=== PATIENT | female | born 2005 | race African-American/Black ===

== ENCOUNTER 2024-09-02 23:36 | Emergency (ER) | payer BC, SELFPAY ==
--- NOTE | ~2024-09-02 | CT_ITS ---
Clinical Indication: Chest pain, shortness of breath CT Scan of the Chest with Contrast: Technique: Contiguous sections were acquired throughout the chest after intravenous administration of 100 cc of Omnipaque 350. Dose reduction technique was used on this scan by utilizing automated expos ure control and iterative reconstruction technique. The dose-length product (DLP) was 163.52 mGy-cm. Findings: There is no evidence of any significant mediastinal, hilar or axillary lymphadenopathy. There is no f illing defect in the pulmonary arterial tree to suggest pulmonary embolus. There is no evidence of ao rtic dissection or aneurysm. There is no evidence of pleural or pericardial effusion. The lungs are clear. No pulmonary nodules or infiltrates are noted. Images through the upper abdomen reveal no abnormalities. Impression: No evidence of pulmonary embolus, aortic dissection, or aortic aneurysm. Clear lungs. Reviewed, dictated and finalized at [facility]. VISION ANTENNA INSTALLER Impression: No evidence of pulmonary embolus, aortic dissection, or aortic aneurysm. Clear lungs.
--- NOTE | ~2024-09-02 | XR_ITS ---
Clinical Indication: Shortness of breath PA and lateral views of the chest: Comparison: None Findings: The lungs are clear, without evidence of focal consolidation or pleural effusion. Cardiome diastinal silhouette is within normal limits. Bones and soft tissues are unremarkable. Impression: Normal chest. Reviewed, dictated and finalized at [facility]. SUPERVISOR Impression: Normal chest.
--- OUTSIDE RECORDS SUMMARY | 2024-09-02 23:38 | XMS_ITS | CONTINUITY OF CARE DOCUMENT ---
Author Name william thomas Address Unknown Organization [facility] Address [address] [place] [address] [address] [place] [address] Phone [phone] Care Team Providers Care Camp Manager Name Role Phone Sudhir Carver MD Unavailable Sudhir Carver MD Unavailable INSURANCE PROVIDERS Payer name Policy type / Coverage type [place] red green party ID BLUE SHIELD OF [place] Blue Shield [place] Blue Shield [facility] Blue Shield [id number]
[2024-09-03] VITALS (10 sets, daily range): BP systolic 104–121; BP diastolic 66–83; PULSE 64–81; RESP 12–21; TEMP 36.5; O2SAT 93–100
--- NOTE | 2024-09-03 | ECG_ITS ---
Test Date: 2024-09-03 00:00:54 Measurements Intervals [place] Rate: 71 P: 61 [place]: 176 QRS: 81 QRSD: 88 T: 76 QT: 457 QTc: 498 Interpretive Statements SINUS RHYTHM INCOMPLETE RIGHT BUNDLE BRANCH BLOCK MINIMAL Q WAVES- INFERIOR LEADS PROLONGED QT INTERVAL BASELINE ARTIFACT- I, II, AVR, AVL, AVF, V1-V6 ABNORMAL ECG No previous ECG available for comparison Electronically Signed On 09-03-2024 07:51:49 FINAL COAT SPRAYER by Rickey Lanier D.O.
[2024-09-03 00:50] LABS: Alanine Aminotransferase 22 U/L (6-35); Albumin Level 4.3 g/dL (3.5-5.1); Alkaline Phosphatase 69 U/L (38-126); Anion Gap 10 mmol/L (4-12); Aspartate Amino Transferase 31 U/L (14-36); Blood Urea Nitrogen 17 mg/dL (7-17); Calcium 9.3 mg/dL (8.4-10.2); Carbon Dioxide 26 mmol/L (22-30); Chloride 101 mmol/L (98-107); Estimated CRCL calculation 116 ml/min; Estimated Glomerular Filt Rate > 60; Glucose 130 mg/dL (65-110); Lipase 68 U/L (23-300); Potassium 3.4 mmol/L (3.4-5.0); Sodium 137 mmol/L (137-145)
[2024-09-03 00:57] LABS: Prothrombin Time 13.8 Seconds (11.1-14.7)
[2024-09-03 01:01] LABS: Troponin I < 0.012 ng/mL (0.000-0.034)
[2024-09-03 01:07] LABS: Basophils Percent Auto 0.4 % (0.2-1.2); Eosinophils Absolute Auto 0.1 K/mm3 (0-0.3); Eosinophils Percent Auto 1.1 % (0-4.4); Hematocrit 37.7 % (37.0-47.0); Immature Granulocyte Absolute 0.02 K/mm3 (0.00-0.031); Immature Granulocyte Percent A 0.2 % (0-0.5); Lymphocytes Percent Auto 39.8 % (18.3-44.2); Mean Corpuscular HGB Conc 34.5 g/dl (32-36); Mean Corpuscular Hemoglobin 30.4 pg (26-34); Mean Corpuscular Volume 88.3 fl (80-100); Mean Platelet Volume 10.4 fl (7.4-10.4); Monocytes Absolute Auto 0.5 K/mm3 (0.1-0.6); Monocytes Percent Auto 5.6 % (2.6-8.5); Neutrophils Absolute Auto 4.3 K/mm3 (1.3-6.7); Neutrophils Percent Auto 52.9 % (45.5-73.1); Platelet Count Result 219 k/mm3 (150-375); Red Blood Count 4.27 M/mm3 (4.2-5.4); White Blood Count 8.1 K/mm3 (4.5-10.0)
--- NOTE | 2024-09-03 05:19 | ED.GENADULT ---
HPI - General Adult General Chief complaint: Chest Pain Stated complaint: chest pain Time Seen by Provider: 09/03/24 04:57 History of Present Illness HPI narrative: Patient is a 19-year-old female who presents emergency department with chief complaint of chest pain. The patient reports that she has been having palpitations throughout the day and has had pressure and tightness in her chest. The patient states that she is on Vyvanse and also on propanolol the patient reports she has had a outpatient evaluation by both cardiology and reports that she has a family history from our fans the patient reports that her father does not have history but her grandfather did have a history of Marfan's Review of Systems Review of Systems: A 10 system review of systems was completed on the patient and is negative except for what is stated in the HPI. Nursing and ancillary documentation was reviewed. Exam Narrative: GENERAL: Well-appearing, well-nourished, and in no acute distress. HEAD: Normocephalic, atraumatic. EYES: PERRLA and EOMI. ENT: Nares clear, no rhinorrhea or epistaxis. Mucous membranes moist. NECK: Supple. CHEST: Clear to auscultation. No respiratory distress. HEART: Regular rate and rhythm. No murmur heard. Normal peripheral pulses. ABDOMEN: Soft, nontender, nondistended, normal active bowel sounds. EXTREMITIES: Normal range of motion. No edema. SKIN: Warm, dry, no rash. NEURO: No focal deficits. Alert and oriented x3. PSYCH: Normal mood and affect. Course Vital Signs Vital signs: Vital Signs Temperature 36.5 C 09/03/24 00:06 Pulse Rate 66 09/03/24 00:06 Respiratory Rate 16 09/03/24 00:06 Blood Pressure 117/72 09/03/24 00:06 Pulse Oximetry 100 09/03/24 00:06 Oxygen Delivery Room Air 09/03/24 00:06 Temperature 36.5 C 09/03/24 00:06 Pulse Rate 81 09/03/24 06:31 Respiratory Rate 14 09/03/24 06:31 Blood Pressure 121/75 09/03/24 06:31 Pulse Oximetry 100 09/03/24 05:48 Oxygen Delivery Room Air 09/03/24 04:[address] [facility] Narrative Medical decision making narrative: Differential diagnosis includes ACS, pulmonary embolism, dissection, aneurysm EKG showed no acute ischemic changes electrolytes are within normal limits troponin was negative CTA chest showed no evidence of PE dissection or aneurysm Vital Signs Vital Signs: Vital Signs Temperature 36.5 C 09/03/24 00:06 Pulse Rate 66 09/03/24 00:06 Respiratory Rate 16 09/03/24 00:06 Blood Pressure 117/72 09/03/24 00:06 Pulse Oximetry 100 09/03/24 00:06 Oxygen Delivery Room Air 09/03/24 00:06 Temperature 36.5 C 09/03/24 00:06 Pulse Rate 81 09/03/24 06:31 Respiratory Rate 14 09/03/24 06:31 Blood Pressure 121/75 09/03/24 06:31 Pulse Oximetry 100 09/03/24 05:48 Oxygen Delivery Room Air 09/03/24 04:29 Lab Data 09/03/24 00:10 09/03/24 00:10 Labs: Lab Results 09/03/24 09/03/24 Range/Units 00:10 05:40 WBC 8.1 (4.5-10.0) K/mm3 RBC 4.27 (4.2-5.4) M/mm3 Hgb 13.0 (12.0-15.0) g/dL Hct 37.7 (37.0-47.0) % MCV 88.3 (80-100) fl MCH 30.4 (26-34) pg MCHC 34.5 (32-36) g/dl RDW 13.0 (11.5-14.5) % Plt Count 219 (150-375) k/mm3 MPV 10.4 (7.4-10.4) fl Immature Gran % (Auto) 0.2 (0-0.5) % Neut % (Auto) 52.9 (45.5-73.1) % Lymph % (Auto) 39.8 (18.3-44.2) % [place] % (Auto) 5.6 (2.6-8.5) % Eos % (Auto) 1.1 (0-4.4) % Baso % (Auto) 0.4 (0.2-1.2) % Lymph # (Auto) 3.20 (0.9-3.2) K/mm3 [place] # (Auto) 0.5 (0.1-0.6) K/mm3 Eos # (Auto) 0.1 (0-0.3) K/mm3 Baso # (Auto) 0.0 (0.0-0.1) K/mm3 Abs Immat Gran (auto) 0.02 (0.00-0.031) K/mm3 Absolute Neuts (auto) 4.3 (1.3-6.7) K/mm3 Absolute Nucleated RBC 0.000 (0.0-0.012) K/mm3 Nucleated RBC % 0.0 (0.0-0.2) % PT 13.8 (11.1-14.7) Seconds INR 1.0 APTT 26.0 (22.3-36.8) Seconds Sodium 137 (137-145) mmol/L Potassium 3.4 (3.4-5.0) mmol/L Chloride 101 (98-107) mmol/L Carbon Dioxide 26 (22-30) mmol/L Anion Gap 10 (4-12) mmol/L BUN 17 (7-17) mg/dL Creatinine 0.56 L (0.7-1.0) mg/dL Estim Creat Clear Calc 116 ml/min Estimated GFR > 60 (59 - ) Glucose 130 H (65-110) mg/dL Calcium 9.3 (8.4-10.2) mg/dL Total Bilirubin 1.0 (0.2-1.3) mg/dL AST 31 (14-36) U/L ALT 22 (6-35) U/L Alkaline Phosphatase 69 (38-126) U/L Troponin I < 0.012 < 0.012 (0.000-0.034) ng/mL Total Protein 8.0 (6.3-8.2) g/dL Albumin 4.3 (3.5-5.1) g/dL Lipase 68 (23-300) U/L Discharge Plan Discharge Clinical Impression: Atypical chest pain Patient Disposition: Home, Self-Care Condition: Stable Instructions: Antibiotic Form, Chest Pain (ED) Patient Language: Citizen Of [place] Follow-up/Referrals: Christiano,JACQUES Marroquin [Primary Care Provider] - Time of Disposition: 06:59
--- OUTSIDE RECORDS SUMMARY | 2024-09-03 05:24 | XMS_ITS | Clinical Summary ---
Author Organization [facility] Address [address] [place] [address] Care Team Providers Care Mover Helper Name Role Phone Unavailable Primary Care Provider Unavailabl e Social History Tobacco Use Types Packs/Day Years Used Date Smoking Tobacco: Never Assessed Comments Unknown Sex and Gender Information Value Date Recorded Sex Assigned at Not on file Legal Sex Female 12:56 PM PAPER PRODUCTION ENGINEER Gender Identity Not on file Sexual Orientation Not on file Plan of Treatment Health Maintenance Due Date Last Done Comments Hepatitis C Virus (HCV) Screening 2003 Meningococcal B Immunization (1 of 2 - Standard) 2019 Influenza Immunization (#1) 2024 07/07/2012, 1 09/12/2005 SARS-COV-2 Immunization ( season) 2024 Respiratory Syncytial Virus (RSV) Immunization (Adult) (1 - 1-dose 75+ series) 2078 Pneumococcal Immunization Combined Aged Out 01/13/2004, 2003, 2003 No longer eligible based on patient's age to complete this topic Hepatitis B Immunization Completed 004, 2003, 2003 Hepatitis A Immunization Discontinued 03/14/2008, 07/31 Measles Mumps Rubella (MMR) Immunization Discontinued 05/16/2011, 11/24/2004 Varicella Immunization Discontinued 05/16/2011, 2004 DTaP/Tdap/Td Immunization Discontinued 2014, 05/16/2011, 02/18/2005, Additional history exists TdaP Immunization Completed 03/03/2015 Human Papillomavirus (HPV) Immunization Completed 04/11/2018, 03/03/2015 Meningococcal Immunization (ACWY) Aged Out 04/11/2018 No longer eligible based on patient's age to complete this topic Rotavirus Immunization Aged Out No lo nger eligible based on patient's age to complete this topic
--- OUTSIDE RECORDS SUMMARY | 2024-09-03 05:24 | XMS_ITS | Patient Health Summary ---
Author Organization [facility] Address [address] [place] [address] Care Team Providers Care Baker Chef Name Role Phone Nguyễn Lopez MD Primary Care Provider Note from [facility],non-owned Affiliates and Associated Physician Practices is amultiple site organization consisting of ambulatory clinics and hospital sitesin [place], [place], [place] and [place]. This disclosure is being madepursuant to the Care Everywhere program and may not contain all information available regarding this patient. Last updated 18.[facility] Allergies No known active allergies Medications * Be aware that medications may not be up to date on this document. Alwaysverify current medications with the patient. * acetaminophen (TYLENOL) 325 MG tablet Take 325 mg by mouth every 4 hours as needed for Fever or Pain Maximum allowable Acetaminophen amount = 4 Grams (4000 mg) / 24 hours. Active Problems Problem Noted Date Diagnosed Date Premature pubarche 10/28/2011 Tall stature 10/28/2011 Social History Tobacco Use Types Packs/Day Years Used Date Smoking Tobacco: Never Smokeless Tobacco: Never Alcohol Use Standard Drinks/Week Comments Never 0 (1 standard drink = 0.6 oz pur e alcohol) AUDIT-C Answer Date Recorded Frequency of Alcohol Consumption Never 07/05/2019 Average Number of Drinks Not on file 019 Frequency of Binge Drinking Not on file 12/2018 Sex and Gender Information Value Date Recorded Sex Assigned at Not on file Gender Identity Not on file Sexual Orientation Not on file Last Filed Vital Signs Vital Sign Reading Time Taken Comments Blood Pressure 102/60 07/05/2019 1:05 PM PHOTOGRAPHY TEACHER Pulse 84 07/05/2019 1:05 PM PHOTOGRAPHY TEACHER Temperature 36.7 ??C (98 ??F) 07/05/2019 1:05 PM PHOTOGRAPHY TEACHER Respiratory Rate 16 07/05/2019 1:05 PM PHOTOGRAPHY TEACHER Oxygen Saturation 100% 07/05/2019 1:05 PM PHOTOGRAPHY TEACHER Inhaled Oxygen Concentration - - Weight 46.7 kg (102 lb 15.3 oz) 02/24/2021 1:00 PM CDT Height 177.8 cm (5' 10 ) 02/24/2021 1:00 PM CDT Body Mass Index 14.77 02/24/2021 1:00 PM CDT Procedures * IMAGING/RADIOLOGY/XRAY RESULTS ORDER(Performed 11/04/2011) Results * IMAGING/RADIOLOGY/XRAY RESULTS ORDER (11/04/2011 8:20 AM CDT) Anatomical Region Laterality Modality Other Narrative Transcriptions Document, Scanned - 11/04/2011 8:20 AM CDT Scanned Document IMAGING Care Teams Baker Chef Relationship Specialty Start Date End Date Nguyễn Lopez MD [address] [place] [address] PCP - General 11/29/21
--- OUTSIDE RECORDS SUMMARY | 2024-09-03 05:24 | XMS_ITS | Clinical Summary ---
Author Organization [facility] Address [address] [place] [address]. [place] [address] [place] [address] Care Team Providers Care Diesel Service Journeyman Name Role Phone Angel Luis Hernandez Primary Care Provider Unavail able Medications SLYND 4 MG Tab Take 4 mg by mouth daily. 09/19/2023 Active lisdexamfetamin e (VYVANSE) 30 MG capsule Take 1 capsule (30 mg total) by mouth daily. 11/15/2023 Active propranolol LA (INDERAL LA) 60 MG 24 hr capsule Take 1 capsule (60 mg total) by mouth daily. Active Active Problems Problem Noted Date Diagnosed Date Precordial pain 04/10/2024 Palpitation 04/10/2024 Incomplete right bundle branch block 08/26/2022 Gastro-esophageal reflux disease with esophagiti s 09/10/2018 Family History Medical History Relation Comments Pacemaker Maternal Grandfather Diabetes Maternal Grandmother Hypertension Maternal Grandmother Hypertension Mother Marfan syndrome Other Relation Status Comments Father Alive Half-brother Alive Half-sister Alive Maternal Grandfather Alive Maternal Grandmother Alive Mother Alive Other Paternal Grandfather Alive Paternal Grandmother Alive Sister Alive Social History Tobacco Use Types Packs/Day Years Used Date Smoking Tobacco: Never Smokeless Tobacco: Never Tobacco Cessation:Counseling Given: Not Answered Alcohol Use Standard Drinks/Week Comments Yes 0 (1 standard drink = 0.6 oz pur e alcohol) Comments Unknown Sex and Gender Information Value Date Recorded Sex Assigned at Not on file Legal Sex Female 9:55 AM CDT Gender Identity Not on file Sexual Orientation Not on file Occupation Industry Job Start Date Job End Date Student Not on file Not on file Not on file Last Filed Vital Signs Vital Sign Reading Time Taken Comments Blood Pressure 98/70 04/10/2024 3:04 PM CDT Pulse 73 04/10/2024 2:32 PM CDT Temperature - - Respiratory Rate - - Oxygen Saturation 98% 04/10/2024 2:32 PM CDT Inhaled Oxygen Concentration - - Weight 53.1 kg (117 lb) 04/10/2024 2:32 PM CDT Height 180.3 cm (5' 11 ) 04/10/2024 2:32 PM CDT Body Mass Index 16.32 04/10/2024 2:32 PM CDT Plan of Treatment Upcoming Encounters Date Type Department Care Team (Late st Contact Info) Description 04/16/2025 3:00 PM CDT Office Visit [facility] [facility] [address] [place], [place] [id number] Kristine Davila MD [facility]. [address] [place], [place] [id number] Health Maintenance Due Date Last Done Comments Annual Physical 2006 Hepatitis C 2021 COVID-19 Vaccine ( season) 2024 03/17/2021, 02/24/2021 Influenza Adult (#1) 2024 07/07/2012, 08/11/2009, 07/06/2009, Additional history exists DTaP, Tdap and Td Vaccines (7 - Td or Tdap) 03/03/2025 03/03/2015, 05/16/2011, 02/18/2005, Additional history exists Cervical Cancer Screening Pap Smear (Age 21 to 29) Every 3 Years 06/07/2025 06/07/2022, 06/07/2022 Cervical Cancer Screening 06/07/2025 Pneumococcal Vaccine: Pediatrics (0 to 5 Years) and At-Risk Patients (6 to 64 Years) Aged Out 01/13/2004, 2003, 2003 No longer eligible based on patient's age to complete this topic Hepatitis B Vaccines Completed 04/08/2004, 2003, 2003 HPV Vaccines Completed 04/11/2018, 03/03/2015 Meningococcal Vaccine Completed 08/28/2020, 018 Meningococcal B Vaccine Completed 08/30/2021, 08/28 RSV Immunizations Under 20 Months Aged Out No longer eligible based on patient's age to complete this topic Insurance [facility] Care Teams Diesel Service Journeyman Relationship Specialty Start Date End Date Angel Luis Hernandez PA PCP - General PHYSICIAN QUALITY INSPECTOR 10/09/23
--- OUTSIDE RECORDS SUMMARY | 2024-09-03 05:24 | XMS_ITS | Referral Summary ---
Author Organization [facility] Address [address] [place] [address] Care Team Providers Care Parachute/Combatant Diver Officer Name Role Phone Nguyễn Lopez MD Primary Care Provider Source Comments [facility],non-owned Affiliates and Associated Physician Practices is amultiple site organization consisting of ambulatory clinics and hospital sitesin [place], [place], [place] and [place]. This disclosure is being madepursuant to the Care Everywhere program and may not contain all information available regarding this patient. Last updated 18.[facility] Allergies No known active allergies Medications * Be aware that medications may not be up to date on this document. Alwaysverify current medications with the patient. Medication Sig Dispensed Refills Start Date End Date Status acetaminophen (TYLENOL) 325 MG tablet Take 325 mg by mouth every 4 hours as needed for Fever or Pain Maximum allowable Acetaminophen amount = 4 Grams (4000 mg) / 24 hours. Active Active Problems Problem Noted Date Diagnosed [...] Comments Blood Pressure 102/60 07/05/2019 1:05 PM MEDICAL CENTER DIRECTOR Pulse 84 07/05/2019 1:05 PM MEDICAL CENTER DIRECTOR Temperature 36.7 ??C (98 ??F) 07/05/2019 1:05 PM MEDICAL CENTER DIRECTOR Respiratory Rate 16 07/05/2019 1:05 PM MEDICAL CENTER DIRECTOR Oxygen Saturation 100% 07/05/2019 1:05 PM MEDICAL CENTER DIRECTOR Inhaled Oxygen Concentration - - Weight 46.7 kg (102 lb 15.3 oz) 02/24/2021 1:00 PM CDT Height 177.8 cm (5' 10 ) 02/24/2021 1:00 PM CDT Body Mass Index 14.77 02/24/2021 1:00 PM CDT Plan of Treatment Not on file Care Teams Parachute/Combatant Diver Officer Relationship Specialty Start Date End Date Nguyễn Lopez MD [address] [place] [address] PCP - General 11/29/21
--- OUTSIDE RECORDS SUMMARY | 2024-09-03 05:24 | XMS_ITS | CONTINUITY OF CARE DOCUMENT ---
Author Name william thomas Address Unknown Organization [facility] Address [address] [place] [address] [address] [place] [address] Phone [phone] Care Team Providers Care Epic Interface Analyst Name Role Phone Sudhir Carver MD Unavailable Sudhir Carver MD Unavailable INSURANCE PROVIDERS Payer name Policy type / Coverage type [place] red democrat ID BLUE SHIELD OF [place] Blue Shield BLUE SHIELD OF [place] Blue Shield [facility] Blue Shield [id number]
--- OUTSIDE RECORDS SUMMARY | 2024-09-03 05:24 | XMS_ITS | Encounter Summary ---
Author Organization [facility] Address [facility] [facility] [place], [place] [address] [place] [address] Care Team Providers Care Roof Mechanic Name Role Phone David Angel Luis HANNA Primary Care Provider Unavail able Encounter Details Date Type Department Care Team (Late Contact Info) Description 12/19/2023 Abstract [facility] [facility] [place] [address] [place], [place] [id number] Jewell Larson MA Social History Tobacco Use Types Packs/Day Years Used Date Smoking Tobacco: Never Smokeless Tobacco: Never Alcohol Use Standard Drinks/Week Comments Yes 0 [...] file Not on file Not on file documented as of this encounter Plan of Treatment Upcoming Encounters Date Type Department Care Team (Late st Contact Info) Description 04/16/2025 3:00 PM CDT Office Visit [facility] [facility], [facility] [place] [address] [place] [address] Kristine Davila MD [facility]. [facility] [place] [address] [place], [place] [phone] documented as of this encounter Procedures Procedure Name Priority Date/Time Associated Diagnosis Comments COMPREHENSIVE METABOLIC PANEL Routine 09/06/2023 LIPID PANEL Routine 09/06/2023 CBC, MANUAL DIFF Routine 09/06/2023 THYROXINE, FREE (FT4) Routine 09/06/2023 THYROID STIM HORMONE TSH Routine 09/06/2023 VITAMIN D, 25 OH Routine 09/06/2023 MAGNESIUM Routine 09/06/2023 documented in this encounter Results * VITAMIN D, 25 OH (09/06/2023) Pathologist [facility] VITAMIN D 25 HYDROXY S/P/B 22.5 09/06/2023 Default History Genericprovider LABORATORY Final Result * COMPREHENSIVE METABOLIC PANEL (09/06/2023) Pathologist [facility] SODIUM S/P/B 136 GLUCOSE 73 mg/dL AST 28 BUN 8 CREATININE S/P/B 0.56 0.5 - 1.0 CALCIUM S/P/B 9.6 POTASSIUM S/P/B 4.4 CHLORIDE S/P/B 101 ALT 16 GFR ESTIMATE 134 Default History Genericprovider LABORATORY Final Result * LIPID PANEL (09/06/2023) Pathologist [facility] CHOLESTEROL 124 TRIGLYCERIDES 38 HDL 65 LDL (CALCULATED) 54 Default History Genericprovider LABORATORY Final Result * CBC, MANUAL DIFF (09/06/2023) Pathologist [facility] WBC 7.3 HGB 14.4 HCT 43.6 PLT 270 Default History Genericprovider LABORATORY Final Result * THYROXINE, FREE (FT4) (09/06/2023) Pathologist [facility] FREE T4 1.54 Default History Genericprovider LABORATORY Final Result * THYROID STIM HORMONE TSH (09/06/2023) [facility] TSH 1.370 us Default History Genericprovider LABORATORY Final Result * MAGNESIUM (09/06/2023) MAGNESIUM 2.0 us Default History Genericprovider LABORATORY Final Result documented in this encounter Visit Diagnoses Not on filedocumented in this encounter Care Teams Roof Mechanic Relationship Specialty Start Date End Date Angel Luis Hernandez PA PCP - General PHYSICIAN ARTIST BLACKSMITH 10/09/23 documented as of this encounter
--- OUTSIDE RECORDS SUMMARY | 2024-09-03 05:24 | XMS_ITS | Clinical Summary ---
Author Organization [facility] Address [address] [facility] [place] [address] Care Team Providers Care Aeroplane Pilot Name Role Phone Nguyễn Lopez MD Primary Care Provider Source Comments [facility],non-owned Affiliates and Associated Physician Practices is amultiple site organization consisting of ambulatory clinics and hospital sitesin [place], [place], [place] and [place]. This disclosure is being madepursuant to the Care Everywhere program and may not contain all information available regarding this patient. Last updated 18.[facility] Allergies No known active allergies Medications * Be aware that medications may not be up to date on this document. Always verify current medications with the patient. Medication Sig [...] Comments Blood Pressure 102/60 07/05/2019 1:05 PM MILLER WOOD FLOUR Pulse 84 07/05/2019 1:05 PM MILLER WOOD FLOUR Temperature 36.7 ??C (98 ??F) 07/05/2019 1:05 PM MILLER WOOD FLOUR Respiratory Rate 16 07/05/2019 1:05 PM MILLER WOOD FLOUR Oxygen Saturation 100% 07/05/2019 1:05 PM MILLER WOOD FLOUR Inhaled Oxygen Concentration - - Weight 46.7 kg (102 lb 15.3 oz) 02/24/2021 1:00 PM CDT Height 177.8 cm (5' 10 ) 02/24/2021 1:00 PM CDT Body Mass Index 14.77 02/24/2021 1:00 PM CDT Plan of Treatment Health Maintenance Due Date Last Done Comments PAP SMEAR 2003 HIV SCREENING 2018 HPV VACCINE (1 - 3-dose series) 2018 CHLAMYDIA/GONORRHEA SCREENING 2019 MENINGOCOCCAL (Group B) VACCINE (1 of 2 - Standard) 2019 HEPATITIS C SCREENING 06/27/2021 DTAP/TDAP/TD VACCINES (1 - Tdap) 2022 HEPATITIS B VACCINE (1 of 3 - 19+ 3-dose series) 2022 COVID-19 VACCINE (1 - 2023- season) 2024 INFLUENZA VACCINE (#1) 2024 2, 08/11/2009, 07/06/2009, Additional history exists DEPRESSION SCREENING 07/31/2024 ZOSTER VACCINE (1 of 2) 2053 HIB VACCINE Aged Out No longer eligi ble based on patient's age to complete this topic MENINGOCOCCAL VACCINE Aged Out No jose roberto keira eligible based on patient's age to complete this topic PNEUMOCOCCAL VACCINE Aged Out No long er eligible based on patient's age to complete this topic Care Teams Aeroplane Pilot Relationship Specialty Start Date End Date Nguyễn Lopez MD [address] [place] [address] PCP - General 11/29/21
[2024-09-03 06:10] LABS: Troponin I < 0.012 ng/mL (0.000-0.034)
== END 2024-09-03 07:13 | disposition home or self-care (01) ==
PROVIDERS: Emergency Provider Emergency Medicine; PCP Physician Assistant Medical
DX: R07.89 Other chest pain (principal); Z79.899 Other long term (current) drug therapy; I45.10 Unspecified right bundle-branch block; R94.31 Abnormal electrocardiogram [ECG] [EKG]
CPT/HCPCS: 36415; 71046; 71275; 80053; 83690; 84484; 85025; 85610; 85730; 93005; 99284; Q9967